=== PATIENT | female | born 1985 | race Caucasian/White ===

== ENCOUNTER → 2019-02-10 19:50 | Outpatient (CLI) | payer OTHER, MEDICAID, SELFPAY | PROVIDERS: PCP Family Medicine; Visit Provider Physician Assistant | DX: L02.212 Cutaneous abscess of back [any part, except buttock and flank] (principal) | CPT/HCPCS: 87070; 87075; 87077; 87186; 87205 ==

== ENCOUNTER 2022-07-21 19:07 | Emergency (ER) | payer OTHER, MEDICAID, SELFPAY ==
[2022-07-21] VITALS (7 sets, daily range): BP systolic 107–124; BP diastolic 68–79; PULSE 83–105; RESP 14–24; TEMP 36.5; O2SAT 97–100; BMI 30.7
--- NOTE | 2022-07-21 19:41 | DI.RAD.S_ITS ---
PROCEDURE: XR ACUTE ABDOMEN SERIES INDICATIONS: no bm, c/o pain TECHNIQUE: One view chest and two views of the abdomen were acquired. COMPARISON: [facility], CR, CHEST 2VW, 04/09/2014, 8:40. FINDINGS: Surgical changes and devices: None. Chest: Lungs are clear. Heart size is normal. No pleural effusions. No pneumoperitoneum. Abdomen: Bowel gas pattern demonstrates moderate colonic stool distention throughout the colon. No abnormal gas distended bowel loops. No suspicious calcifications. Bones: No suspicious bony lesions. IMPRESSION: 1. Moderate colonic stool distention throughout the colon suggestive of constipation. 2. No definite evidence of bowel obstruction. Dictated by: Moy Guardado M.D. on 07/21/2022 at 21:55 Approved by: Moy Guardado M.D. on 07/21/2022 at 21:56
--- NOTE | 2022-07-22 06:49 | ED_ITS ---
HPI - Abdominal Pain General Chief Complaint: Abdominal Pain Stated Complaint: unable to have bowel movement/bleeding Time Seen by Provider: 07/21/22 20:39 Source: patient Mode of arrival: Ambulatory History of Present Illness HPI narrative: 37-year-old female smoker presents with a chief complaint of difficulty to have bowel movement for the past few weeks and now some blood in her stool after straining on the toilet. She denies any change in medications or diet and states that over this time she is had increasing episodes of constipation and finds herself straining on the toilet. She is still passing gas and denies any nausea or vomiting. She has taken no [id number] stool softeners. She is not dizzy nor weak or lightheaded. She denies fever or chills. She denies dysuria or frequency or urgency. She has no vaginal bleeding or discharge. She takes no blood thinners, she denies use of pain medications Related Data Home Medications Medication Instructions Recorded Confirmed metformin 500 mg tablet 500 mg PO QID 02/10/19 02/10/19 Allergies Allergy/AdvReac Type Severity Reaction Status Date / Time Penicillins Allergy Unknown Verified 02/10/19 11:41 Review of Systems Review of Systems Narrative: GENERAL: See HPI HEENT: Denies sinus pain, ear pain, sore throat, difficulty swallowing, dizziness. RESPIRATORY: Denies dyspnea, cough, wheezing, hemoptysis, sputum. CARDIOVASCULAR: Denies chest pain, palpitations, orthopnea, edema, GASTROINTESTINAL: See HPI : Denies dysuria, frequency, incontinence, hematuria, urinary retention. MUSCULOSKELETAL: denies weakness, joint pain, or bony pain SKIN: Denies rash, skin lesions, or other NEUROLOGIC: Denies weakness, headache, numbness, change in speech, confusion, seizures, incoordination. PSYCHIATRIC: No concerning psychosocial issues. 12 point review of systems is negative except for those stated above Patient History Social History Smoking Status: Current every day smoker Smoking Status: Current every day smoker Substance Use Type: does not use Exam Narrative Exam Narrative: GENERAL: [] year old patient appears stated age. Well-developed patient, in mild distress. HEAD: Atraumatic. Normocephalic. EYES: Pupils equal round and reactive. Extraocular motions intact. No scleral icterus. No injection or drainage. ENT: Nose without bleeding, purulent drainage. Throat without erythema, tonsillar hypertrophy or exudate. Airway patent. NECK: Trachea midline. Non tender CARDIOVASCULAR: Regular rate and rhythm without murmurs, gallops, or rubs. RESPIRATORY: Clear to auscultation. Breath sounds equal bilaterally. No wheezes, rales, or rhonchi. GASTROINTESTINAL: Abdomen soft, non-tender, nondistended RECTAL: No hemorrhoid, no bleeding, no fissure, heme-negative. EXTREMITIES: No edema or joint tenderness. BACK: Nontender without deformity or crepitance. No flank tenderness. NEURO: AOx3. SKIN: No rash or erythema of visible areas Initial Vital Signs Initial Vital Signs: Vital Signs Temperature 97.7 F 07/21/22 19:34 Pulse Rate 105 H 07/21/22 19:34 Respiratory Rate 20 07/21/22 19:34 Blood Pressure 116/75 07/21/22 19:34 Pulse Oximetry 100 07/21/22 19:34 Oxygen Delivery Method 07/21/22 19:34 Course Vital Signs Vital signs: Vital Signs - 8 hr 07/21/22 23:00 07/21/22 23:00 07/21/22 23:30 Pulse Rate 89 Respiratory Rate 18 Blood Pressure 107/68 124/79 Pulse Oximetry 97 07/21/22 23:30 Pulse Rate 91 H Respiratory Rate 14 Blood Pressure Pulse Oximetry 98 MDM - Abdominal Pain Lab Data Point of care testing: Point of Care Testing Test Results Negative Urine Dip Bedside Urine Glucose Negative Bedside Urine Bilirubin - Negative Bedside Urine Ketone - Negative Urine Specific [place] 1.030 Bedside Urine Occult Blood - Negative Bedside Urine pH 6.0 Bedside Urine Protein - Negative Bedside Urine Urobilinogen - Negative Bedside Urine Nitrite - Negative Bedside Urine Leukocytes - Negative Esterase Imaging Data Abdominal x-ray: Radiologist's Impression: Minnie Haro??37??F??1985 ? Allergy/Adv: Penicillins Close Chest/Abdomen X-ray (Signed) Moy Guardado - 07/21/22 Launch?[address] [address] XRay Report Signed Patient: Minnie Haro MR#: [id number] : 1985 Acct:[id number] Age/Sex: 37 / F Date of Service: 07/21/22 Loc: ED Accession Number: [id number] ?? Procedure: XR acute abdomen series Ordering Provider: Scott Alicia D.O. PROCEDURE:? XR ACUTE ABDOMEN SERIES ? INDICATIONS:? no bm, c/o pain ? TECHNIQUE:? One view chest and two views of the abdomen were acquired.? ? COMPARISON:? [facility], CR, CHEST 2VW, 04/09/2014, 8:40. ? FINDINGS:? ? Surgical changes and devices:? None.? ? Chest:? Lungs are clear.? Heart size is normal.? No pleural effusions.? No pneumoperitoneum.? ? Abdomen:? Bowel gas pattern demonstrates moderate colonic stool distention throughout the colon.? No abnormal gas distended bowel loops.? No suspicious calcifications.? ? Bones:? No suspicious bony lesions.? ? IMPRESSION:? ? 1. Moderate colonic stool distention throughout the colon suggestive of constipation. ? 2. No definite evidence of bowel obstruction. ? ? Dictated by: Moy Guardado M.D. on 07/21/2022 at 21:55 ? ? MDM Narrative Medical decision making narrative: [37-year-old female with decreased bowel movements and generalized abdominal discomfort] Multiple etiologies for patient's symptoms considered including, but not limited to: [Bowel obstruction, constipation, hemorrhoid versus other] Prior Charts reviewed: 1 prior family practice visit reviewed Labs reviewed and interpreted by myself: None ordered Imaging reviewed: No obstruction, constipation present Patient's symptoms improved over duration of stay with above-stated therapies. Discussed further evaluation with patient including labs and advanced imaging but patient states she she would prefer to leave now and attempt to use [id number] laxatives Findings and discharge diagnosis discussed with patient/family followed by verbalization of understanding Return precautions discussed with patient/family whom verbalize understanding of diagnosis and plan Discharge Plan Departure Patient Disposition: Home Clinical Impression: Constipation, Abdominal pain Instructions: DI for Constipation Activity Restrictions/Additional Instructions: *You have been diagnosed with [ abdominal pain due to constipation ] *What to do: *Take over the counter medications as directed: 1. Metamucil - is a bulk forming laxative and adds fiber 2. Colace - softens your stool 3. Dulcolax suppository - stimulates your bowels *Follow up with your primary care provider in 2-3 days, call for appointment *Return to ER if you should have any new, worsening or concerning symptoms *Drink plenty of water and eat foods high in fiber *Stay as active as you can as this helps move your bowels as well Prescriptions: No Action metformin 500 mg tablet 500 mg PO QID Stand Alone Forms: Patient Portal/API
== END 2022-07-21 23:48 | disposition home or self-care (01) ==
PROVIDERS: Emergency Provider Emergency Medicine
DX: R10.9 Unspecified abdominal pain (principal); K59.00 Constipation, unspecified
CPT/HCPCS: 74022; 81003; 81025; 99283